=== PATIENT | female | born 1995 | race Caucasian/White ===

== ENCOUNTER 2020-08-12 12:58 | Emergency (ER) | payer OTHER | END 2020-08-12 14:00 | disposition home or self-care (01) | LOC: JVIRT 12:58 | DX: Z20.822 Contact with and (suspected) exposure to COVID-19 (principal) | CPT/HCPCS: C9803; G2251-GT; Q3014-GT; U0003 ==

== ENCOUNTER 2020-09-25 14:48 | Emergency (ER) | payer OTHER ==
[2020-09-26 08:06] LABS: SARS-CoV-2 NAA Not Detected (Not Detected)
== END 2020-09-25 15:30 | disposition home or self-care (01) ==
LOC: JVIRT 14:48
DX: Z20.822 Contact with and (suspected) exposure to COVID-19 (principal)
CPT/HCPCS: C9803; G2251-GT; Q3014-GT; U0003; U0005